=== PATIENT | female | born 1985 | race Caucasian/White ===

== ENCOUNTER 2016-10-21 11:20 | Emergency (ER) | payer OTHER ==
[2016-10-21 12:08] LABS: BASOPHIL 0.4 % (0-2); EOSINOPHIL 1.8 % (0-5); HCT 42.3 % (37.0-47.0); HGB 14.4 g/dl (12.5-16.0); LYMPHOCYTE 30.1 % (15-48); MCH 30.4 pg (25.0-31.0); MCV 89.4 fL (78.0-100.0); MONOCYTE 7.1 % (0-12); MPV 10.4 fL (6.0-9.5); NEUTROPHIL 60.6 % (41-80); PLT 323 K/uL (150-400); RBC 4.73 M/uL (4.20-5.40); WBC 8.6 K/uL (4.0-10.5)
[2016-10-21 12:22] LABS: BILIRUBIN NEGATIVE (NEGATIVE); BLOOD NEGATIVE Ery/uL (NEGATIVE); CLARITY CLEAR (CLEAR); COLOR YELLOW (YELLOW); GLUCOSE (U) NORMAL (NORMAL); KETONE (U) NEGATIVE (NEGATIVE); LEUKOCYTES NEGATIVE Leu/uL (NEGATIVE); NITRITE NEGATIVE (NEGATIVE); PROTEIN NEGATIVE (NEGATIVE); SPECIFIC GRAVITY <=1.005 (1.001-1.030); UROBILINOGEN 0.2 mg/dL (0.2-1.0)
[2016-10-21 12:25] LABS: LACTIC ACID 1.7 mmol/L (0.5-2.2)
[2016-10-21 12:28] LABS: ALBUMIN 4.6 g/dL (3.5-5.0); BILIRUBIN - TOTAL 0.3 mg/dL (0.1-1.0); GLOBULIN (CALCULATION) 3.1 g/dL (2.2-4.2); POTASSIUM 3.6 mmol/L (3.5-5.1); TOTAL PROTEIN 7.7 g/dL (6.4-8.3)
[2016-10-21 13:16] LABS: AMYLASE 111 U/L (28-100); LIPASE 73 U/L (13-60)
== END 2016-10-21 15:00 | disposition home or self-care (01) ==
LOC: FER 11:20
PROVIDERS: Internal Medicine
DX: K85.90 Acute pancreatitis without necrosis or infection, unspecified (principal); K21.9 Gastro-esophageal reflux disease without esophagitis; I10 Essential (primary) hypertension; J45.909 Unspecified asthma, uncomplicated; F17.210 Nicotine dependence, cigarettes, uncomplicated; Z88.5 Allergy status to narcotic agent; Z88.6 Allergy status to analgesic agent
CPT/HCPCS: 36415; 80053; 81003; 82150; 83605; 83690; 85025; J2175; J2405; Q9967

== ENCOUNTER 2021-01-05 08:50 | Emergency (ER) | payer OTHER ==
[2021-01-05 09:28] LABS: BASOPHIL 0.4 % (0-2); EOSINOPHIL 1.3 % (0-5); HCT 39.6 % (37.0-47.0); HGB 13.6 g/dl (12.5-16.0); LYMPHOCYTE 21.8 % (15-48); MCH 32.2 pg (25.0-31.0); MCHC 34.3 g/dL (32.0-36.0); MCV 93.8 fL (78.0-100.0); MPV 10.7 fL (6.0-9.5); NRBC 0; PLT 269 K/uL (150-400); RBC 4.22 M/uL (4.20-5.40); RDW 12.1 % (11.5-14.0); WBC 8.3 K/uL (4.0-10.5)
[2021-01-05 09:54] LABS: ALBUMIN 3.9 g/dL (3.4-5.0); BILIRUBIN - TOTAL 0.4 mg/dL (0.2-1.0); BUN/CREAT RATIO (CALC) 7.8 RATIO; CREATININE 0.9 mg/dL (0.51-0.95); GLOBULIN (CALCULATION) 3.3 g/dL; POTASSIUM 3.9 mmol/L (3.5-5.1); TOTAL PROTEIN 7.2 g/dL (6.4-8.2)
[2021-01-05 09:58] LABS: BILIRUBIN NEGATIVE (NEGATIVE); BLOOD NEGATIVE Ery/uL (NEGATIVE); CLARITY CLEAR (CLEAR); COLOR YELLOW (YELLOW); GLUCOSE (U) NORMAL (NORMAL); LEUKOCYTES NEGATIVE Leu/uL (NEGATIVE); NITRITE NEGATIVE (NEGATIVE); PROTEIN NEGATIVE (NEGATIVE); SPECIFIC GRAVITY <=1.005 (1.001-1.030); UROBILINOGEN 0.2 mg/dL (0.2-1.0)
[2021-01-05] MEDS ORDERED: ONDANSETRON ODT4 MG PO (11:10)
== END 2021-01-05 11:22 | disposition home or self-care (01) ==
LOC: FER 08:50
PROVIDERS: Emergency Medicine
DX: O21.0 Mild hyperemesis gravidarum (principal); O99.331 Smoking (tobacco) complicating pregnancy, first trimester; F17.210 Nicotine dependence, cigarettes, uncomplicated; Z3A.01 Less than 8 weeks gestation of pregnancy; Z90.49 Acquired absence of other specified parts of digestive tract; Z88.6 Allergy status to analgesic agent; Z88.1 Allergy status to other antibiotic agents
CPT/HCPCS: 36415; 80053; 81003; 84702; 85025; J2405; J7030

== ENCOUNTER 2021-08-18 04:57 | Inpatient (IN) | payer OTHER ==
[~2021-08-18 04:57] MED LIST: ONDANSETRON ODT4 MG PO
[2021-08-18 05:59] LABS: BILIRUBIN NEGATIVE (NEGATIVE); BLOOD NEGATIVE Ery/uL (NEGATIVE); CLARITY HAZY (CLEAR); COLOR YELLOW (YELLOW); GLUCOSE (U) NORMAL (NORMAL); HCT 34.9 % (37.0-47.0); HGB 12.1 g/dl (12.5-16.0); LEUKOCYTES 2+ Leu/uL (NEGATIVE); MCH 32.2 pg (25.0-31.0); MCHC 34.7 g/dL (32.0-36.0); MCV 92.8 fL (78.0-100.0); MPV 12.6 fL (6.0-9.5); NITRITE NEGATIVE (NEGATIVE); PROTEIN TRACE (LOW) mg/dL (NEGATIVE); RBC 3.76 M/uL (4.20-5.40); RDW 14.8 % (11.5-14.0); UROBILINOGEN 0.2 mg/dL (0.2-1.0); WBC 9.3 K/uL (4.0-10.5)
[2021-08-18 06:06] LABS: BACTERIA 3+
[2021-08-18 06:07] LABS: SQUAMOUS EPITHELIAL CELLS 20-50
[2021-08-18 06:25] LABS: ALBUMIN 2.3 g/dL (3.4-5.0); BILIRUBIN - TOTAL 0.4 mg/dL (0.2-1.0); BUN/CREAT RATIO (CALC) 7.2 RATIO; CREATININE 1.11 mg/dL (0.51-0.95); GLOBULIN (CALCULATION) 3.9 g/dL; POTASSIUM 3.4 mmol/L (3.5-5.1); TOTAL PROTEIN 6.2 g/dL (6.4-8.2)
[2021-08-18 08:21] LABS: BILIRUBIN NEGATIVE (NEGATIVE); BLOOD 3+ Ery/uL (NEGATIVE); CLARITY CLEAR (CLEAR); COLOR YELLOW (YELLOW); GLUCOSE (U) NORMAL (NORMAL); LEUKOCYTES NEGATIVE Leu/uL (NEGATIVE); NITRITE NEGATIVE (NEGATIVE); PROTEIN NEGATIVE (NEGATIVE); SPECIFIC GRAVITY 1.015 (1.001-1.030); UROBILINOGEN 0.2 mg/dL (0.2-1.0)
[2021-08-18 08:36] LABS: URINARY RBC 20-50; URINARY WBC RARE
[2021-08-19 06:18] LABS: HCT 35.5 % (37.0-47.0); HGB 12.1 g/dl (12.5-16.0); MCH 32.4 pg (25.0-31.0); MCHC 34.1 g/dL (32.0-36.0); MCV 95.2 fL (78.0-100.0); RBC 3.73 M/uL (4.20-5.40); RDW 14.9 % (11.5-14.0)
[2021-08-20] MEDS ORDERED: NORCO 5-325 TA1 EACH PO (06:33)
[2021-08-20] MEDS ORDERED: PRENATAL FORMU1 EACH PO (06:33)
[2021-08-20] MEDS ORDERED: COLACE100 MG PO (06:33)
== END 2021-08-20 11:07 | disposition home or self-care (01) | DRG 788 ==
LOC: FOB 04:57
PROVIDERS: ADMIT Specialist
PROC: 10D00Z1 Extraction of Products of Conception, Low, Open Approach (ICD-10-PCS; principal; 2021-08-18 07:00)
DX: O34.211 Maternal care for low transverse scar from previous cesarean delivery (principal); Z37.0 Single live birth; Z3A.38 38 weeks gestation of pregnancy; Z20.822 Contact with and (suspected) exposure to COVID-19; O24.429 Gestational diabetes mellitus in childbirth, unspecified control; O26.893 Other specified pregnancy related conditions, third trimester; Z67.41 Type O blood, Rh negative; O99.334 Smoking (tobacco) complicating childbirth; F17.200 Nicotine dependence, unspecified, uncomplicated; Z14.1 Cystic fibrosis carrier
CPT/HCPCS: 36415; 80053; 81001; 85461; 86850; 86900; 86901; J0690; J1100; J1200; J2274; J2370; J2405; J2790; J3010; J7120